=== PATIENT | male | born 1965 | race Caucasian/White ===

== ENCOUNTER 2019-12-31 05:45 | Day surgery (SDC) | payer BC ==
[2019-12-31] MEDS ORDERED: ceFAZolin 2 GM in Premix Bag 1 BAG IV ONE (06:30)
[2019-12-31] MEDS ORDERED: Lactated Ringers 1,000 ML IV SCH (06:30)
[2019-12-31] MEDS ORDERED: Nozin Nasal Sanitizer NASBOTH SCH (06:30)
[2019-12-31] MEDS ORDERED: Povidone-Iodine 10% Soln 118.25 ML Bottle ONE (06:54)
[2019-12-31] MEDS ORDERED: fentaNYL 250 MCG/5 ML SDV ONE (07:35)
[2019-12-31] MEDS ORDERED: Ondansetron 4 MG/2 ML SDV ONE (07:36)
[2019-12-31] MEDS ORDERED: Propofol 200 MG/20 ML SDV ONE (07:36)
[2019-12-31] MEDS ORDERED: Glycopyrrolate 0.2 MG/ML 5 ML MDV ONE (07:36)
[2019-12-31] MEDS ORDERED: Neostigmine Methylsulfate 1 MG/ML 5 ML Syringe ONE (07:36)
[2019-12-31] MEDS ORDERED: Dexamethasone 4 MG/ML SDV ONE (07:36)
[2019-12-31] MEDS ORDERED: Succinylcholine 200 MG/10 ML MDV ONE (07:36)
[2019-12-31] MEDS ORDERED: Rocuronium 50 MG/5 ML Vial ONE (07:36)
[2019-12-31] MEDS ORDERED: Bupivacaine 0.5% 30 ML SDV ONE (07:40)
[2019-12-31] MEDS ORDERED: Morphine 2 MG/ML SYRINGE IVPUSH PRN (09:44)
[2019-12-31] MEDS ORDERED: traMADol 50 MG Tab PO PRN (09:44)
[2019-12-31] MEDS ORDERED: Ondansetron 4 MG/2 ML SDV IVPUSH PRN (09:44)
[2019-12-31] MEDS ORDERED: Sodium Chloride 0.9% 1,000 ML IV SCH (09:45)
[2019-12-31] MEDS: Ketorolac 30 MG/ML SDV IVPUSH SCH ×3 (10:38→22:36)
[2019-12-31] MEDS: Acetaminophen/oxyCODONE 325-5 MG Tab PO PRN ×3 (11:07→23:18)
--- NOTE | 2019-12-31 12:40 | CR ---
Shoulder 1V Lt CLINICAL HISTORY: Postop hemiarthroplasty FINDINGS: Patient is status post hemiarthroplasty. The humeral head component appears well-seated on a single view. IMPRESSION: Limited study post left shoulder hemiarthroplasty
[2019-12-31] MEDS: ceFAZolin 1 GM in Premix Bag 1 BAG IV SCH ×2 (14:24→22:20)
[2019-12-31] MEDS: Nozin Nasal Sanitizer NASBOTH SCH ×2 (19:19→20:44)
[2020-01-01] MEDS: Acetaminophen/oxyCODONE 325-5 MG Tab PO PRN ×2 (02:31→08:58)
[2020-01-01] MEDS: Ketorolac 30 MG/ML SDV IVPUSH SCH ×2 (05:08→10:18)
[2020-01-01] MEDS: ceFAZolin 1 GM in Premix Bag 1 BAG IV SCH (05:09)
[2020-01-01] MEDS ORDERED: FLU VACC QS2020-21(6MOS UP)/PF 60 MCG/0.5 ML SYRINGE IM ONE (08:00)
[2020-01-01] MEDS ORDERED: Docusate Sodium 100 MG Cap PO SCH (09:00)
[2020-01-01] MEDS: Nozin Nasal Sanitizer NASBOTH SCH (09:06)
--- NOTE | 2020-01-02 21:20 | OR ---
DATE OF PROCEDURE: 12/31/2019 SURGEON: Isai Singh MD PREOPERATIVE DIAGNOSIS: Osteoarthritis, left shoulder. POSTOPERATIVE DIAGNOSIS: Osteoarthritis, left shoulder. PROCEDURE: Hemiarthroplasty, left shoulder using Arthrosurface OVO size 56 x 52 humeral component. ANESTHESIA: Interscalene block with sedation. INDICATIONS: Mr. Nichole is a pleasant 54-year-old gentleman with a history of persistent and progressive pain in the left shoulder over the past few years. Increasing difficulty with range of motion, reaching. Examination and imaging are consistent with osteoarthritis of the glenohumeral joint with intact rotator cuff. He now presents for hemiarthroplasty of the left shoulder and possible total shoulder arthroplasty with inlay glenoid. Risks, benefits, potential complications of the procedure were discussed. DESCRIPTION OF PROCEDURE: After adequate anesthesia was obtained, patient was placed in a beach-chair position. Left shoulder and arm were prepped and draped in a sterile fashion. Anterior incision was made and carried down through the subcutaneous tissues. Hemostasis was obtained with electrocautery. The cephalic vein was identified and retracted laterally with the deltoid. A self-retaining retractor was placed beneath the conjoined tendon and the deltoid. The subscapularis was then divided approximately 1 cm medial to its insertion. Tag sutures were placed in the end of the tendon and used to retract it medially. A capsular release was performed inferiorly. Retractor was placed over the humeral head and the humerus was rotated externally exposing the head of the humerus. The inferior osteophyte was removed with a rongeur. An additional retractor was placed medially and the humeral head was then sized to a 56 x 52 mm Arthrosurface OVO head. The guide was centered over the head and a guide pin was then advanced into the lateral cortex. The guide was removed. The centering screw was placed over the guide pin at the appropriate depth to restore approximately 1 mm of height. Appropriate reamer was placed over this decorticating the humeral head and providing a stable rim circumferentially. Planing reamer was placed over this. Centering guide was removed along with central bone plug and the fixation screw was placed with excellent purchase. Confirmation of depth was done. Once this was accomplished, the guides were removed and the humeral head was then reduced and retracted posterior to the glenoid. The glenoid was evaluated after irrigation. This was found to have some central wear without cavitation or significant chondromalacia with loose cartilage flaps. Some minor degenerative changes of the labrum were present and this was debrided with combination of rongeur and Bovie electrocautery. It was irrigated once again and determination was made not to proceed with resurfacing of the glenoid. The arm was externally rotated once again presenting the prepared humeral head. Retractors were placed and the OVO component was secured into the Goldberg taper and confirmation of secure fixation was done with a [place] elevator. The arm was then reduced and taken through range of motion. He had approximately 50% translation anterior to posterior with excellent range of motion. Shoulder was thoroughly irrigated with pulse lavage. The subscapularis was repaired using #2 Ethibond in a combination of [id number] and mattress sutures and then oversewn with a running suture. Once this was accomplished, the arm could be externally rotated to approximately 45 degrees without significant tension on the repair. The skin was closed with 2-0 Vicryl and a running 3-0 Monocryl. Of note, during placement of retractors for the implantation, a rent was caused in the cephalic vein and this was tied off with 2-0 Vicryl prior to skin closure. Incision was dressed with Steri- Strips and gauze dressing. The patient tolerated the procedure well. There were no complications, taken from the operating room in stable condition. Isai Singh MD /[id number] [place]
== END 2020-01-01 11:06 | disposition home or self-care (01) ==
LOC: JP.SDS 05:45 → JP.MS 09:45 → JP.SDS 01-01 11:06
PROVIDERS: ATTEND Specialist
DX: M19.012 Primary osteoarthritis, left shoulder (principal); I10 Essential (primary) hypertension; F32.9 Major depressive disorder, single episode, unspecified; E66.9 Obesity, unspecified; Z88.8 Allergy status to other drugs, medicaments and biological substances; Z68.35 Body mass index [BMI] 35.0-35.9, adult
CPT/HCPCS: 36415; 73020-26-LT; 73020-LT; 80048; 85027; 90686; 97110-GP; 97161-GP; A9270-GY; J0330; J0690; J1100; J1885; J2270; J2405; J2704; J2710; J3010; J3490; J7120